=== PATIENT | female | born 2000 | race African-American/Black ===

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

== ENCOUNTER 2021-01-25 03:44 | Emergency (ER) | payer OTHER | END 2021-01-25 04:15 | disposition home or self-care (01) | LOC: ERS 03:44 | DX: H65.91 Unspecified nonsuppurative otitis media, right ear (principal) | CPT/HCPCS: 99282 ==

== ENCOUNTER 2021-08-27 18:13 | Emergency (ER) | payer OTHER ==
[2021-08-27 19:14] LABS: Hemoglobin 13.4 g/dL (12.0-16.0); Mean Corpuscular HGB CONC 33.2 g/dL (32.0-36.0); Mean Corpuscular Hemoglobin 32.9 pg (25.0-35.0); Mean Platelet Volume 7.9 fL (7.4-10.4); Platelet Count 252 thou/uL (130-400); RBC Distribution Width 11.3 % (11.5-14.5); Red Blood Cell (RBC) Count 4.08 mill/uL (4.00-5.20)
[2021-08-27 19:29] LABS: Band 1 % (5-11); Eosinophils 1 % (0-10); Lymphocytes 57 % (28-48); MDiff Complete? YES; Monocytes 4 % (0-4); Neutrophil 37 % (31-61); Platelet Morphology Comment Appears Adequate; RBC Morphology Normal
[2021-08-27 19:33] LABS: ALT (SGPT) 17 U/L (8-55); AST (SGOT) 17 U/L (5-30); Albumin 3.9 g/dL (3.5-5.0); Alkaline Phosphatase 67 U/L (40-100); Anion Gap 12 mmol/L (10-20); BUN (Urea Nitrogen) 8 mg/dL (8.4-21.0); Bilirubin, Total 0.8 mg/dL (0.2-1.2); Calc. Creatinine Clearance 0 mL/min (70-130); Calcium 9.3 mg/dL (7.8-10.44); Carbon Dioxide 22 mmol/L (22-29); Chloride 107 mmol/L (98-107); Globulin 3.4 g/dL (2.4-3.5); Glucose 86 mg/dL (70-105); Lipase 85 U/L (8-78); Potassium 3.9 mmol/L (3.5-5.1); Protein, Total 7.3 g/dL (6.0-8.3); Sodium 137 mmol/L (136-145)
[2021-08-27 19:34] LABS: BHCG - Serum Negative (NEGATIVE); Pregs Control Background? CLEAR/WHITE (CLR/WHITE); Pregs Control Bar Appear? YES (CONTROL BAR)
[2021-08-27 20:57] LABS: Bilirubin Negative (Negative); Blood, Urine Negative (Negative); Clarity Clear (Clear); Glucose, Urine (Dipstick) Normal (Negative); Ketone, Urine Negative (Negative); Leukocyte Negative Leu/uL (Negative); Nitrite Negative (Negative); Protein, Urine (Dipstick) Negative (Neg-Trace); Specific Gravity, Urine 1.022 (1.002-1.036); Urobilinogen Normal mg/dL (Less than 2); pH, Urine 5.5 (5.0-9.0)
== END 2021-08-27 22:05 | disposition home or self-care (01) ==
LOC: ERS 18:13
DX: R10.11 Right upper quadrant pain (principal); R10.31 Right lower quadrant pain
CPT/HCPCS: 36415; 80053; 81003; 83690; 84703; 85025; 99284

== ENCOUNTER 2024-11-20 23:59 | Emergency (ER) | payer OTHER, SELFPAY ==
[2024-11-21] MEDS ORDERED: Bacitracin 1 PK ONE (01:21)
== END 2024-11-21 01:33 | disposition home or self-care (01) ==
LOC: ERS 23:59
DX: T24.211A Burn of second degree of right thigh, initial encounter (principal); T21.22XA Burn of second degree of abdominal wall, initial encounter; W44.B Plastic entering into or through a natural orifice
CPT/HCPCS: 99283